=== PATIENT | female | born 1935 ===

== ENCOUNTER 2016-10-09 17:59 | Inpatient (IN) | payer OTHER ==
[2016-10-09 23:02] VITALS: BMI 22.9
[2016-10-09 23:09] LABS: BASOPHILS # (AUTO) 0.1 X10^3/uL (0.0-0.1); BASOPHILS % (AUTO) 0.4 % (0.2-1.0); EOSINOPHILS # (AUTO) 0.3 x10^3/uL (0.0-0.2); EOSINOPHILS % (AUTO) 2.5 % (0.9-2.9); LYMPHOCYTES # (AUTO) 1.4 X10^3/uL (1.3-2.9); MEAN CORPUSCULAR HEMOGLOBIN 27.1 pg (27.0-34.0); MEAN CORPUSCULAR HGB CONC 32.4 g/dL (33.0-35.0); MEAN CORPUSCULAR VOLUME 83.6 fL (80.0-100.0); MEAN PLATELET VOLUME 7.9 fL (7.4-11.0); MONOCYTES # (AUTO) 0.9 x10^3/uL (0.3-0.8); MONOCYTES % (AUTO) 7.3 % (0.0-13.0); NEUTROPHILS # (AUTO) 9.2 x10^3/uL (2.2-4.8); NEUTROPHILS % (AUTO) 77.8 % (42.0-75.0); PLATELET COUNT 174 X10^3/uL (150.0-450.0); RED BLOOD COUNT 4.43 X10^6/uL (3.5-5.4); RED CELL DISTRIBUTION WIDTH 15.5 % (11.6-16.5); WHITE BLOOD COUNT 11.9 X10^3/uL (3.6-10.0)
[2016-10-09 23:21] LABS: ALANINE AMINOTRANSFERASE 15 Units/L (12-78); ALBUMIN 2.7 g/dL (3.4-5.0); ALKALINE PHOSPHATASE 58 Units/L (46-116); ASPARTATE AMINO TRANSFERASE 19 Units/L (15-37); BLOOD UREA NITROGEN 9 mg/dL (7-18); CALCIUM 9.2 mg/dL (8.5-10.1); CHLORIDE 100 mmol/L (98-107); COR CA(FOR HYPOALB) 10.2 mg/dL (8.5-10.1); COR NA(FOR HYPERGLY) 137 mmol/L (136-145); CREATININE 0.72 mg/dL (0.55-1.02); GLUCOSE 111 mg/dL (65-99); SODIUM 137 mmol/L (136-145); TOTAL PROTEIN 6.9 g/dL (6.4-8.2); eGFR BLACK RACES > 60 (>60); eGFR NON BLACK RACES > 60 (>60)
[2016-10-10 00:18] LABS: BILIRUBIN,URINE NEGATIVE (NEGATIVE); BLOOD/HEMOGLOBIN,URINE 5+ (NEGATIVE); GLUCOSE, URINE NEGATIVE (NEGATIVE); KETONES,URINE NEGATIVE (NEGATIVE); LEUKOCYTE ESTERASE ,URINE 1+ (NEGATIVE); NITRITES,URINE NEGATIVE (NEGATIVE); PH,URINE 6.5 (5.0 - 8.0); PROTEIN,URINE 1+ (NEGATIVE); UROBILINOGEN,URINE NORMAL (NORMAL)
[2016-10-10 00:37] LABS: APPEARANCE,URINE CLEAR (CLEAR); COLOR,URINE YELLOW (YELLOW)
[2016-10-10 00:38] LABS: BACTERIA,URINE TRACE /HPF (NEGATIVE); SQUAMOUS EPITHELIAL CELL,UR RARE /HPF (NEGATIVE)
[2016-10-10] MEDS ORDERED: MORPHINE SULFATE INJ 2 MG IVP PRN (02:08)
[2016-10-10] MEDS: TORADOL 15 MG VIAL IVP SCH ×3 (09:42→22:07)
[2016-10-10] MEDS: NS 1000 ML 1,000 ML IV SCH (09:42)
[2016-10-10] MEDS ORDERED: K-RIDER 10 MEQ/NS 100 ML 10 MEQ/100 ML BAG IV PRN (11:22)
[2016-10-10] MEDS ORDERED: POTASSIUM CHLORIDE LIQ 20 MEQ UDC PO PRN (11:22)
[2016-10-10] MEDS ORDERED: K-LYTE EFFERVESCENT PO PRN (11:22)
[2016-10-10] MEDS ORDERED: K-DUR TAB 20 MEQ PO PRN (11:22)
[2016-10-10] MEDS ORDERED: TORADOL 30 MG VIAL ONE (13:41)
[2016-10-10] MEDS ORDERED: TORADOL 30 MG VIAL IVP ONE (13:42)
--- NOTE | 2016-10-10 15:47 | MRI ---
MRI SPINE LUMBAR WITHOUT AND WITH CONTRAST CLINICAL HISTORY: 81-year-old female with severe low back pain. COMPARISON: None. Technique: Multiplanar, multisequence MRI images of the lumbar spine were obtained prior to and fol lowing the uneventful intravenous administration of contrast. FINDINGS: The most caudad, fully-formed intervertebral disc will be labeled L5-S1 for the purpose of this dictation. There is significant dextroscoliotic curvature of the lumbar spine apex L1-L2. Alig nment is maintained. There is an acute burst fracture L1 with mild retropulsion of the fracture frag ments that does not contact the cord or nerve roots without significant canal compromise. Hypo inten se marrow diffusely within L3. Remaining vertebral body heights and marrow are preserved. There is l oss of disk space L2-L4 and L5-S1 and associated loss of disk signal at these levels with the remain ing intervertebral disc signal preserved. Cord signal is normal. The conus medullaris is normal in s ignal characteristics and morphology and terminates at the L1-2 level. T11-T12: No central canal or neural foraminal stenosis. T12-L1: Burst fracture with loss of approximately 25% vertebral body height centrally with low inten sity fracture line and hyperintense surrounding marrow at L1 with mild retropulsion of the fracture fragments with an central canal is widely patent. No significant neural foraminal stenosis. L1-L2: No significant central canal or neural foraminal stenosis. L2-L3: Significant dextroscoliotic curvature combines with severe facet hypertrophy and thickened fl avum to produce severe left subarticular recess stenosis without significant neural foraminal stenos is. No central canal stenosis. L3-L4: Significant bilateral facet hypertrophy and thickened flavum with canal measuring 11.9 mm wit hout significant neural foraminal stenosis L4-L5: Mild facet hypertrophy and thickened flavum without central canal or neural foraminal stenosi s. L5-S1: No significant central canal or neural foraminal stenosis with moderate facet hypertrophy and thickened flavum. There is no evidence of abnormal enhancement within the lumbar spine. Significant fatty atrophy of the right psoas and paraspinous musculature from T12 inferiorly. Large T2 hyperintense and T1 isointense cystic lesions arising from the kidneys bilaterally. Remaining par aspinous soft tissues are unremarkable. IMPRESSION: 1. Acute burst fracture at L1 with mild retropulsion of the fracture fragments without cord impingem ent or central canal/neural foraminal narrowing. 2. Diffuse hypo intense marrow signal on L3 without fracture. These lesions may represent metastatic disease, consideration for percutaneous biopsy should be given. 3. Multilevel degenerative change without significant central canal or neural foraminal stenosis oth erwise 4. Significant fatty atrophy of the right psoas and paraspinous musculature. 5. Cystic lesions within the bilateral kidneys, recommend renal ultrasound and/or CT renal protocol for complete evaluation if not previously performed.. Reported By:
--- NOTE | 2016-10-10 16:36 | DR.H&P ---
H&P - History & Physical for Day of: H&P Date: 10/09/16 - Chief Complaint Chief Complaint: BACK PAIN, RECENT FALL - Allergies Allergies/Adverse Reactions: Allergies Allergy/AdvReac Type Severity Reaction Status Date / Time zolpidem [From Ambien] AdvReac Verified 10/09/16 20:13 - History of Present Illness History of Present Illness: IS A 81 YEAR OLD PATIENT OF OURS WHO WAS TRANSFERRED TO US LAST NIGHT WITH COMPLAINTS OF SEVERE LOWER BACK PAIN. PATIENT STATED THAT SHE FELL ON 10/01/10 AND HAS HAD MIDDLE AND LOWER BACK PAIN SINCE AND HAS BEEN UNABLE TO WALK. PATIENT WAS TAKEN TO [facility]. T- SPINE XRAY REVEALED REMOTE COMPRESSION FRACTURES OF T8 AND T7 WITH VERTEBROPLASTY . LUMBAR XRAY REPORTED COMPRESSION FRACTURE WITH VERTEBROPLASTY AT L3, COMPRESSION OF THE SUPERIOR ENDPALTE OF L1. PATIENT AND FAMILY REQUESTED TRANSFER TO OUR FACILITY FOR ORTHO CONSULT WITH . PATIENT IS NOTED WITH TENDERNESS TO MIDDLE AND LOWER BACK ON EXAMINATION. PATIENT WAS TRANSFERRED AND ADMITTED FOR FURTHER TREATMENT AND EVALUATION. WE WILL CHECK CHECK CBC, CMP, AND URINALYSIS. WE WILL CONSULT AND FOLLOW UP WITH PATIENT IN AM. - Past Medical History Past Medical History: Anxiety, Arthritis, CHF, Depression, GERD, Hypertension, Hypothyroidism Additional Medical History: CONSTIPATION, URINARY INCONTINENCE, CERVICAL SPONDYLOSIS, BACK PAIN - Past Surgical History Surgical History: Appendectomy, Hysterectomy, Ortho Surgery, Tonsillectomy Additional Surgical History: TUBAL LIGATION, RIGHT HIP, BILATERAL KNEES - Family History Family Medical History: Cancer - Social History Does patient currently use any type of tobacco product: No Have you used tobacco products in the last 12 months: No Type of Tobacco Use: None Alcohol Use: None Drug Use: None - Medications Home Medications: Aspirin EC [ASPIRIN EC 81 MG *] 81 mg PO DAILY 10/09/16 [History Confirmed 10/09] Cyclosporine [Restasis] 1 drop OP BID 10/09/16 [History Confirmed 10/09/16] Duloxetine HCl [Duloxetine HCl] 60 mg PO DAILY 10/09/16 [History Confirmed 10/09] Fentanyl [Fentanyl] 100 mcg TOP Q72H 10/09/16 [History Confirmed 10/09/16] Furosemide [Furosemide] 40 mg PO DAILY 10/09/16 [History Confirmed 10/09/16] Gabapentin [NEURONTIN CAP 300 mg *] 300 mg PO BID 10/09/16 [History Confirmed ] Levothyroxine Sodium [Levothyroxine Sodium] 100 mcg PO DAILY 10/09/16 [History Confirmed 10/09/16] Lisinopril [Lisinopril] 2.5 mg PO DAILY 10/09/16 [History Confirmed 10/09/16] Omeprazole [Omeprazole] 40 mg PO DAILY 10/09/16 [History Confirmed 10/09/16] Oxybutynin Chloride [Oxybutynin Chloride ER] 10 mg PO DAILY 10/09/16 [History Confirmed 10/09/16] Polyethylene Glycol Pwd Ud [MIRALAX POWDER (17 GM DOSE) *] 1 ea PO DAILY [History Confirmed 10/09/16] Potassium Chloride [Potassium Chloride] 10 meq PO DAILY 10/09/16 [History Confirmed 10/09/16] Pregabalin [Lyrica] 100 mg PO DAILY 10/09/16 [History Confirmed 10/09/16] Primidone [Primidone] 100 mg PO HS 10/09/16 [History Confirmed 10/09/16] Sotalol HCl [Sotalol] 80 mg PO BID 10/09/16 [History Confirmed 10/09/16] Topiramate [Topiramate] 25 mg PO BID 10/09/16 [History Confirmed 10/09/16] Tramadol HCl [Tramadol HCl] 50 mg PO TID PRN 10/09/16 [History Confirmed ] - Review of Systems Constitutional: No Symptoms Reported. denies: See HPI, Fever, Chills, Sweats, Weakness, Malaise, Other Eyes: No Symptoms Reported. denies: See HPI, Pain, Vision Change, Conjunctivae Inflammation, Eyelid Inflammation, Redness, Other ENT: No Symptoms Reported. denies: See HPI, Ear Pain, Ear Discharge, Nose Pain , Nose Discharge, Nose Congestion, Mouth Pain, Mouth Swelling, Throat Pain, Throat Swelling, Other Respiratory: No Symptoms Reported. denies: See HPI, Cough, Dry, Shortness of Breath, Hemoptysis, SOB with Excertion, Pleuritic Pain, Sputum, Wheezing, Other Cardiovascular: No Symptoms Reported. denies: Chest Pain, See HPI, Palpitations , Orthopnea, Paroxysmal Noc. Dyspnea, Edema, Light Headedness, Other Gastrointestinal: No Symptoms Reported. denies: See HPI, Nausea, Vomiting, Abdominal Pain, Diarrhea, Constipation, Melena, Hematochezia, Other Genitourinary: No Symptoms Reported. denies: See HPI, Dysuria, Frequency, Incontinence, Hematuria, Retention, Other Musculoskeletal: No Symptoms Reported, Back Pain Skin: No Symptoms Reported. denies: See HPI, Rash, Lesions, Jaundice, Bruising , Wound, Ecchymosis, Other Neurological: No Symptoms Reported - Physical Exam Vital Signs: Temperature 98.4 F Pulse Rate [Left Brachial] 72 Pulse Rate [Right Radial] 92 Respiratory Rate 20 Blood Pressure [Left Arm] 121/83 Blood Pressure [Right Arm] 119/71 O2 Sat by Pulse Oximetry 92 Oriented: Normal Eyes: Normal Ear: Normal Nose: Normal Throat: Normal Respiratory: Clear Throughout. negative: Diminished Throughout, Rhonchi Throughout, Rales Throughout, Wheezes Throughout, RUL Clear, RML Clear, RLL Clear, MIGUELANGEL Clear, LML Clear, LLL Clear, RUL Diminished, RML Diminished, RLL Diminished, MIGUELANGEL Diminished, LML Diminished, LLL Diminished, RUL Absent, RML Absent, RLL Absent, MIGUELANGEL Absent, LML Absent, LLL Absent, RUL Rhonchi, RML Rhonchi , RLL Rhonchi, MIGUELANGEL Rhonchi, LML Rhonchi, LLL Rhonchi, RUL Insp. Wheeze, RML Insp. Wheeze, RLL Insp. Wheeze, MIGUELANGEL Insp.Wheeze, LML Insp.Wheeze, LLL Insp.Wheeze, RUL Exp. Wheeze, RML Exp. Wheeze, RLL Exp. Wheeze, MIGUELANGEL Exp. Wheeze , LML Exp. Wheeze, LLL Exp. Wheeze, RUL Rales, RML Rales, RLL Rales, MIGUELANGEL Rales, LML Rales, LLL Rales, RUL Rub, RML Rub, RLL Rub, MIGUELANGEL Rub, LML Rub, LLL Rub, RUL Squeak, RML Squeak, RLL Squeak, MIGUELANGEL Squeak, LML Squeak, LLL Squeak Cardiovascular: Normal. negative: Tachycardia, Bradycardia, Irregular, S3, S4, Systolic, Diastolic, Murmur, Edema, Other : Normal. negative: Dysuria, Hematuria, Frequency, Discharge, Testicular Pain , Bleeding, , Other Auscultation: Bowel Sounds: Normal. negative: Bruit, Absent, Increased, Decreased, High Pitched, Other Palpation: Normal Tenderness: Normal. negative: Diffuse, RUQ, RLQ, LUQ, LLQ, Epigastric, Periumbilical, Suprapubic, Mild, Moderate, Severe, Rebound, Guarding, Rigidity, Other Skin: Normal. negative: Decreased Turgur, Rash, Papular, Macular, Maculopapular , Vesicular, Pustular, Petechial, Red, Tender, Hot, Diaphoresis, Wound, Bruising , Ecchymosis, Other Musculoskeletal: Back:Thoracic, Back:Lumbar, Tender, Instability Psychiatric: Normal. negative: Anxiety, Depression, Agitation, Other Mood Description: Calm. negative: Angry, Apathetic, Depressed, Fearful, Flat, Happy, Hostile, Sad, Suspicious, Withdrawn, Anxious, Appropriate, Labile Affect: Normal Speech Pattern: Clear - Assessment/Plan (1) Severe back pain Status: Acute Plan: MORHINE IV PRN, ORTHO CONSULT, CONTINUE TO MONITOR (2) Compression fracture of body of thoracic vertebra Status: Acute Plan: MORHINE IV PRN, ORTHO CONSULT, CONTINUE TO MONITOR (3) Compression fracture of lumbar vertebra Qualifiers: Encounter type: initial encounter Fracture type: closed Fracture healing : F Qualified Code(s): S32.000A - Wedge compression fracture of unspecified lumbar vertebra, initial encounter for closed fracture Status: Acute Plan: MORHINE IV PRN, ORTHO CONSULT, CONTINUE TO MONITOR
[2016-10-10] MEDS: ROCEPHIN VIAL 1 GM 1 GM in NS 50 ML IV + SPIKE MINIBAG* 50 ML IV SCH (18:31)
--- NOTE | 2016-10-10 21:25 | PCM.PROG ---
Progress Note - Progress Note for Day of Date: 10/10/16 - Subjective Subjective: WAS ADMITTED YESTERDAY EVENING WITH COMPRESSION FRACTURES OF THORACIC AND LUMBAR SPINE. SHE IS ALERT IN BED ON MORNING ROUNDS. SHE IS WITH COMPLAINS OF BACK PAIN THAT IS NOT BEING RELIEVED BY MORPHINE AT THIS TIME. LUNGS ARE CLEAR ON AUSCULTATION. PATIENT STATES THAT SHE HAS BEEN UNABLE TO GET OUT OF BED. VITALS THIS AM ARE 99.2, 18, 72, 92%, 119/71. LABS WERE OBTAINED AND REPORTED WBC 11.9. CMP REPORTED POTASSIUM 3.3, BUN 9, CREATININE 0.72, CARBON DIOXIDE 34, CALCIUM 10.2, ALBUMIN 2.7. URINALYSIS REPORTED WBC 2-4, RBC 8-10, OCCULT BLOOD 5+, PROTEIN 1+, LEUKOCYTES 1+. WE ARE AWAITING CONSULT FROM . WE WILL START PATIENT ON TORALDOL 15MG IV Q6H, RECHECK LABS AND FOLLOW UP WITH PT IN AM. - Past Medical Family Social History Past Med/Fam/Surg Hx: No changes since H&P Allergies: Allergies zolpidem [From Ambien] Adverse Reaction (Verified 10/09/16 20:13) - Review of Systems ROS: No change since H&P - Vital Signs and I&O's Vital Signs: Temperature 98.4 F Pulse Rate [Left Brachial] 72 Pulse Rate [Right Radial] 94 Respiratory Rate 20 Blood Pressure [Left Arm] 121/83 Blood Pressure [Right Arm] 161/96 O2 Sat by Pulse Oximetry 93 Intake and Output: Intake & Output 10/08/16 10/09/16 10/10/16 10/11/16 11:59 11:59 11:59 11:59 Intake Total 700 176 Output Total 251 Balance 449 176 - Physical Exam Oriented: Normal Eyes: Normal Ear: Normal Nose: Normal Throat: Normal Respiratory: Normal Cardiovascular: Normal. negative: Tachycardia, Bradycardia, Irregular, S3, S4, Systolic, Diastolic, Murmur, Edema, Other : Normal. negative: Dysuria, Hematuria, Frequency, Discharge, Testicular Pain , Bleeding, , Other Auscultation: Bowel Sounds: Normal. negative: Bruit, Absent, Increased, Decreased, High Pitched, Other Palpation: Normal Tenderness: Normal. negative: Diffuse, RUQ, RLQ, LUQ, LLQ, Epigastric, Periumbilical, Suprapubic, Mild, Moderate, Severe, Rebound, Guarding, Rigidity, Other Skin: Normal. negative: Decreased Turgur, Rash, Papular, Macular, Maculopapular , Vesicular, Pustular, Petechial, Red, Tender, Hot, Diaphoresis, Wound, Bruising , Ecchymosis, Other Musculoskeletal: Back:Thoracic, Back:Lumbar, Tender, Instability Psychiatric: Normal. negative: Anxiety, Depression, Agitation, Other Mood Description: Calm. negative: Angry, Apathetic, Depressed, Fearful, Flat, Happy, Hostile, Sad, Suspicious, Withdrawn, Anxious, Appropriate, Labile Affect: Normal Speech Pattern: Clear - Laboratory and Diagnostics Result Diagrams: 10/09/16 22:40 10/09/16 22:40 Labs: Laboratory WBC 11.9 X10^3/uL (3.6-10.0) H 10/09/16 22:40 RBC 4.43 X10^6/uL (3.5-5.4) 10/09/16 22:40 Hgb 12.0 g/dL (12.0-16.0) 10/09/16 22:40 Hct 37.0 % (36.0-47.0) 10/09/16 22:40 MCV 83.6 fL (80.0-100.0) 10/09/16 22:40 MCH 27.1 pg (27.0-34.0) 10/09/16 22:40 MCHC 32.4 g/dL (33.0-35.0) L 10/09/16 22:40 RDW 15.5 % (11.6-16.5) 10/09/16 22:40 Plt Count 174 X10^3/uL (150.0-450.0) 10/09/16 22:40 MPV 7.9 fL (7.4-11.0) 10/09/16 22:40 Neut % 77.8 % (42.0-75.0) H 10/09/16 22:40 Lymph % 12.0 % (21.0-51.0) L 10/09/16 22:40 [place] % 7.3 % (0.0-13.0) 10/09/16 22:40 Eos % 2.5 % (0.9-2.9) 10/09/16 22:40 Baso % 0.4 % (0.2-1.0) 10/09/16 22:40 Neut # 9.2 x10^3/uL (2.2-4.8) H 10/09/16 22:40 Lymph # 1.4 X10^3/uL (1.3-2.9) 10/09/16 22:40 [place] # 0.9 x10^3/uL (0.3-0.8) H 10/09/16 22:40 Eos # 0.3 x10^3/uL (0.0-0.2) H 10/09/16 22:40 Baso # 0.1 X10^3/uL (0.0-0.1) 10/09/16 22:40 Absolute Nucleated RBC 0.0 /100WBC 10/09/16 22:40 INR Target Range - 10/09/16 22:40 INR 1.10 (0.8-1.3) 10/09/16 22:40 Sodium 137 mmol/L (136-145) 10/09/16 22:40 Corrected Sodium 137 mmol/L (136-145) 10/09/16 22:40 Potassium 3.3 mmol/L (3.5-5.1) L 10/09/16 22:40 Chloride 100 mmol/L (98-107) 10/09/16 22:40 Carbon Dioxide 34.0 mmol/L (21-32) H 10/09/16 22:40 BUN 9 mg/dL (7-18) 10/09/16 22:40 Creatinine 0.72 mg/dL (0.55-1.02) 10/09/16 22:40 Est GFR (MDRD) Af Amer > 60 (>60) 10/09/16 22:40 Est GFR (MDRD) Non-Af > 60 (>60) 10/09/16 22:40 Glucose 111 mg/dL (65-99) H 10/09/16 22:40 Calcium 9.2 mg/dL (8.5-10.1) 10/09/16 22:40 Corrected Calcium 10.2 mg/dL (8.5-10.1) H 10/09/16 22:40 Total Bilirubin 0.40 mg/dL (0.2-1.0) 10/09/16 22:40 AST 19 Units/L (15-37) 10/09/16 22:40 ALT 15 Units/L (12-78) 10/09/16 22:40 Alkaline Phosphatase 58 Units/L (46-116) 10/09/16 22:40 Total Protein 6.9 g/dL (6.4-8.2) 10/09/16 22:40 Albumin 2.7 g/dL (3.4-5.0) L 10/09/16 22:40 Globulin 4.2 g/dL (2.5-4.5) 10/09/16 22:40 Albumin/Globulin Ratio 0.6 Ratio (1.1-2.1) L 10/09/16 22:40 Specimen Type Catherized urine 10/09/16 23:56 Urine Color Yellow (YELLOW) 10/09/16 23:56 Urine Appearance Clear (CLEAR) 10/09/16 23:56 Urine pH 6.5 (5.0 - 8.0) 10/09/16 23:56 Ur Specific [place] 1.015 (1.000-1.030) 10/09/16 23:56 Urine Protein 1+ (NEGATIVE) 10/09/16 23:56 Urine Glucose (UA) Negative (NEGATIVE) 10/09/16 23:56 Urine Ketones Negative (NEGATIVE) 10/09/16 23:56 Urine Occult Blood 5+ (NEGATIVE) 10/09/16 23:56 Urine Nitrite Negative (NEGATIVE) 10/09/16 23:56 Urine Bilirubin Negative (NEGATIVE) 10/09/16 23:56 Urine Urobilinogen Normal (NORMAL) 10/09/16 23:56 Ur Leukocyte Esterase 1+ (NEGATIVE) 10/09/16 23:56 Urine RBC 8-10 /HPF (NEGATIVE) 10/09/16 23:56 Urine WBC 2-4 /HPF (NEGATIVE) 10/09/16 23:56 Ur Squamous Epith Cells Rare /HPF (NEGATIVE) 10/09/16 23:56 Urine Bacteria Trace /HPF (NEGATIVE) 10/09/16 23:56 Ur Culture Indicated? Yes/culture set up 10/09/16 23:56 - Plan (1) Severe back pain Status: Acute Plan: MORHINE IV PRN, ORTHO CONSULT, CONTINUE TO MONITOR (2) Compression fracture of body of thoracic vertebra Status: Acute Plan: MORHINE IV PRN, ORTHO CONSULT, CONTINUE TO MONITOR (3) Compression fracture of lumbar vertebra Status: Acute Qualifiers: Encounter type: initial encounter Fracture type: closed Fracture healing : F Qualified Code(s): S32.000A - Wedge compression fracture of unspecified lumbar vertebra, initial encounter for closed fracture Plan: MORHINE IV PRN, ORTHO CONSULT, CONTINUE TO MONITOR
[2016-10-11] MEDS: TORADOL 15 MG VIAL IVP SCH ×4 (04:31→21:53)
[2016-10-11 06:21] LABS: BASOPHILS # (AUTO) 0.1 X10^3/uL (0.0-0.1); BASOPHILS % (AUTO) 0.7 % (0.2-1.0); EOSINOPHILS # (AUTO) 0.5 x10^3/uL (0.0-0.2); EOSINOPHILS % (AUTO) 5.3 % (0.9-2.9); HEMATOCRIT 34.6 % (36.0-47.0); HEMOGLOBIN 11.5 g/dL (12.0-16.0); LYMPHOCYTES # (AUTO) 1.8 X10^3/uL (1.3-2.9); LYMPHOCYTES % (AUTO) 20.1 % (21.0-51.0); MEAN CORPUSCULAR HEMOGLOBIN 27.6 pg (27.0-34.0); MEAN CORPUSCULAR HGB CONC 33.1 g/dL (33.0-35.0); MEAN CORPUSCULAR VOLUME 83.3 fL (80.0-100.0); MONOCYTES # (AUTO) 0.9 x10^3/uL (0.3-0.8); MONOCYTES % (AUTO) 10.4 % (0.0-13.0); NEUTROPHILS # (AUTO) 5.7 x10^3/uL (2.2-4.8); NEUTROPHILS % (AUTO) 63.5 % (42.0-75.0); PLATELET COUNT 172 X10^3/uL (150.0-450.0); RED BLOOD COUNT 4.16 X10^6/uL (3.5-5.4); RED CELL DISTRIBUTION WIDTH 15.3 % (11.6-16.5)
[2016-10-11 06:28] LABS: ALANINE AMINOTRANSFERASE 17 Units/L (12-78); ALBUMIN 2.3 g/dL (3.4-5.0); ALKALINE PHOSPHATASE 52 Units/L (46-116); ASPARTATE AMINO TRANSFERASE 33 Units/L (15-37); BLOOD UREA NITROGEN 12 mg/dL (7-18); CALCIUM 9.3 mg/dL (8.5-10.1); CHLORIDE 104 mmol/L (98-107); COR CA(FOR HYPOALB) 10.7 mg/dL (8.5-10.1); CREATININE 0.47 mg/dL (0.55-1.02); GLUCOSE 93 mg/dL (65-99); SODIUM 141 mmol/L (136-145); TOTAL PROTEIN 6.5 g/dL (6.4-8.2); eGFR BLACK RACES > 60 (>60); eGFR NON BLACK RACES > 60 (>60)
--- NOTE | 2016-10-11 06:29 | RAD ---
HISTORY: Preop kyphoplasty Study: Chest one view Comparison: None Findings: The patient is rotated to the left. The heart is upper limits normal in size. The aorta is calcified . No congestive heart failure is noted. No definite acute alveolar infiltrates are present. No pleur al effusions are identified. The bony thorax is unremarkable with the exception of 2 prior thoracic vertebroplasties. IMPRESSION: Lungs clear Reported By:
--- NOTE | 2016-10-11 06:57 | US ---
HISTORY: Renal cysts Study: Bilateral renal sonogram Comparison: MRI lumbar spine October 10, 2016 Technique: Multiple grayscale sonographic images were obtained. Findings: The right kidney measured 10.5 x 3.7 x 5 centimeters. The left kidney measured 10.8 x 5.9 x 4.7 cent imeters. Cortical thickness and cortical echogenicity are normal bilaterally. No solid masses, hydro nephrosis, stones, or perinephric fluid collections are identified. Bilateral renal cysts are presen t 1.7 centimeters on the right and 7.8 centimeters on the left. IMPRESSION: Bilateral renal cysts Reported By:
[2016-10-11] MEDS: ROCEPHIN VIAL 1 GM 1 GM in NS 50 ML IV + SPIKE MINIBAG* 50 ML IV SCH (08:29)
[2016-10-11] MEDS: ALBUMIN HUMAN 25%- 100ML 100 ML IV SCH (08:29)
--- NOTE | 2016-10-11 09:47 | PCM.PROG ---
Progress Note - Progress Note for Day of Date: 10/11/16 - Subjective Subjective: WAS ADMITTED FOR COMPRESSION FRACTURES OF THORACIC AND LUMBAR SPINE. SHE IS ALERT IN BED ON MORNING ROUNDS. SHE CONTINUES WITH COMPLAINTS OF BACK PAIN AND RIGHT SHOULDER PAIN. KYPHOPLASTY IS PLANNED FOR THIS MORNING WITH . LUNGS ARE CLEAR ON AUSCULTATION. VITALS THIS AM ARE 97.7, 71, 20, 91%, 174/85. LABS WERE OBTAINED AND REPORTED WBC 9.0, HGB 11.5 , HCT 34.6. CMP REPORTED POTASSIUM 4.2, BUN 12, CREATININE 0.47, CARBON DIOXIDE 33, CALCIUM 10.7, ALBUMIN 2.3. WE WILL CONTINUE TORADOL 15MG IV Q6H FOR PAIN, WE WILL REVIEW AND RESTART HOME MEDICATIONS, RECHECK LABS AND FOLLOW UP WITH PT IN AM. - Past Medical Family Social History Past Med/Fam/Surg Hx: No changes since H&P Allergies: Allergies zolpidem [From Ambien] Adverse Reaction (Verified 10/09/16 20:13) - Review of Systems ROS: No change since H&P - Vital Signs and I&O's Vital Signs: Temperature 97.7 F Pulse Rate [Left Brachial] 71 Pulse Rate [Right Radial] 87 Respiratory Rate 20 Blood Pressure [Left Arm] 174/85 Blood Pressure [Right Arm] 136/84 O2 Sat by Pulse Oximetry 91 Intake and Output: Intake & Output 10/08/16 10/09/16 10/10/16 10/11/16 11:59 11:59 11:59 11:59 Intake Total 700 516 Output Total 251 550 Balance 449 -34 - Physical Exam Oriented: Normal Eyes: Normal Ear: Normal Nose: Normal Throat: Normal Respiratory: Normal Cardiovascular: Normal. negative: Tachycardia, Bradycardia, Irregular, S3, S4, Systolic, Diastolic, Murmur, Edema, Other : Normal. negative: Dysuria, Hematuria, Frequency, Discharge, Testicular Pain , Bleeding, , Other Auscultation: Bowel Sounds: Normal. negative: Bruit, Absent, Increased, Decreased, High Pitched, Other Palpation: Normal Tenderness: Normal. negative: Diffuse, RUQ, RLQ, LUQ, LLQ, Epigastric, Periumbilical, Suprapubic, Mild, Moderate, Severe, Rebound, Guarding, Rigidity, Other Skin: Normal. negative: Decreased Turgur, Rash, Papular, Macular, Maculopapular , Vesicular, Pustular, Petechial, Red, Tender, Hot, Diaphoresis, Wound, Bruising , Ecchymosis, Other Musculoskeletal: Right, Shoulder, Back:Thoracic, Back:Lumbar, Tender, Instability Psychiatric: Normal. negative: Anxiety, Depression, Agitation, Other Mood Description: Calm. negative: Angry, Apathetic, Depressed, Fearful, Flat, Happy, Hostile, Sad, Suspicious, Withdrawn, Anxious, Appropriate, Labile Affect: Normal Speech Pattern: Clear, Appropriate - Laboratory and Diagnostics Result Diagrams: 10/11/16 03:30 10/11/16 03:30 Labs: Laboratory WBC 9.0 X10^3/uL (3.6-10.0) 10/11/16 03:30 RBC 4.16 X10^6/uL (3.5-5.4) 10/11/16 03:30 Hgb 11.5 g/dL (12.0-16.0) L 10/11/16 03:30 Hct 34.6 % (36.0-47.0) L 10/11/16 03:30 MCV 83.3 fL (80.0-100.0) 10/11/16 03:30 MCH 27.6 pg (27.0-34.0) 10/11/16 03:30 MCHC 33.1 g/dL (33.0-35.0) 10/11/16 03:30 RDW 15.3 % (11.6-16.5) 10/11/16 03:30 Plt Count 172 X10^3/uL (150.0-450.0) 10/11/16 03:30 MPV 9.0 fL (7.4-11.0) 10/11/16 03:30 Neut % 63.5 % (42.0-75.0) 10/11/16 03:30 Lymph % 20.1 % (21.0-51.0) L 10/11/16 03:30 [place] % 10.4 % (0.0-13.0) 10/11/16 03:30 Eos % 5.3 % (0.9-2.9) H 10/11/16 03:30 Baso % 0.7 % (0.2-1.0) 10/11/16 03:30 Neut # 5.7 x10^3/uL (2.2-4.8) H 10/11/16 03:30 Lymph # 1.8 X10^3/uL (1.3-2.9) 10/11/16 03:30 [place] # 0.9 x10^3/uL (0.3-0.8) H 10/11/16 03:30 Eos # 0.5 x10^3/uL (0.0-0.2) H 10/11/16 03:30 Baso # 0.1 X10^3/uL (0.0-0.1) 10/11/16 03:30 Absolute Nucleated RBC 0.1 /100WBC 10/11/16 03:30 INR Target Range - 10/09/16 22:40 INR 1.10 (0.8-1.3) 10/09/16 22:40 Sodium 141 mmol/L (136-145) 10/11/16 03:30 Corrected Sodium TNP 10/11/16 03:30 Potassium 4.2 mmol/L (3.5-5.1) 10/11/16 03:30 Chloride 104 mmol/L (98-107) 10/11/16 03:30 Carbon Dioxide 33.0 mmol/L (21-32) H 10/11/16 03:30 BUN 12 mg/dL (7-18) 10/11/16 03:30 Creatinine 0.47 mg/dL (0.55-1.02) L 10/11/16 03:30 Est GFR (MDRD) Af Amer > 60 (>60) 10/11/16 03:30 Est GFR (MDRD) Non-Af > 60 (>60) 10/11/16 03:30 Glucose 93 mg/dL (65-99) 10/11/16 03:30 Calcium 9.3 mg/dL (8.5-10.1) 10/11/16 03:30 Corrected Calcium 10.7 mg/dL (8.5-10.1) H 10/11/16 03:30 Total Bilirubin 0.50 mg/dL (0.2-1.0) 10/11/16 03:30 AST 33 Units/L (15-37) 10/11/16 03:30 ALT 17 Units/L (12-78) 10/11/16 03:30 Alkaline Phosphatase 52 Units/L (46-116) 10/11/16 03:30 Total Protein 6.5 g/dL (6.4-8.2) 10/11/16 03:30 Albumin 2.3 g/dL (3.4-5.0) L 10/11/16 03:30 Globulin 4.2 g/dL (2.5-4.5) 10/11/16 03:30 Albumin/Globulin Ratio 0.5 Ratio (1.1-2.1) L 10/11/16 03:30 Specimen Type Catherized urine 10/09/16 23:56 Urine Color Yellow (YELLOW) 10/09/16 23:56 Urine Appearance Clear (CLEAR) 10/09/16 23:56 Urine pH 6.5 (5.0 - 8.0) 10/09/16 23:56 Ur Specific [place] 1.015 (1.000-1.030) 10/09/16 23:56 Urine Protein 1+ (NEGATIVE) 10/09/16 23:56 Urine Glucose (UA) Negative (NEGATIVE) 10/09/16 23:56 Urine Ketones Negative (NEGATIVE) 10/09/16 23:56 Urine Occult Blood 5+ (NEGATIVE) 10/09/16 23:56 Urine Nitrite Negative (NEGATIVE) 10/09/16 23:56 Urine Bilirubin Negative (NEGATIVE) 10/09/16 23:56 Urine Urobilinogen Normal (NORMAL) 10/09/16 23:56 Ur Leukocyte Esterase 1+ (NEGATIVE) 10/09/16 23:56 Urine RBC 8-10 /HPF (NEGATIVE) 10/09/16 23:56 Urine WBC 2-4 /HPF (NEGATIVE) 10/09/16 23:56 Ur Squamous Epith Cells Rare /HPF (NEGATIVE) 10/09/16 23:56 Urine Bacteria Trace /HPF (NEGATIVE) 10/09/16 23:56 Ur Culture Indicated? Yes/culture set up 10/09/16 23:56 - Plan (1) Severe back pain Status: Acute Plan: MORHINE IV PRN, KYPHOPLASTY PLANNED FOR LUMBAR FX, CONTINUE TO MONITOR (2) Compression fracture of body of thoracic vertebra Status: Acute Plan: MORHINE IV PRN, ORTHO CONSULT, CONTINUE TO MONITOR (3) Compression fracture of lumbar vertebra Status: Acute Qualifiers: Encounter type: initial encounter Fracture type: closed Fracture healing : F Qualified Code(s): S32.000A - Wedge compression fracture of unspecified lumbar vertebra, initial encounter for closed fracture Plan: MORHINE IV PRN, TORADOL SCHEDULED, KYPHOPLASTY PLANNED, CONTINUE TO MONITOR
[2016-10-11] MEDS ORDERED: PATIENT'S HOME MEDICATION (Potassium Chloride [Potassium Chloride] 10 MEQ) PO SCH (10:00)
[2016-10-11] MEDS ORDERED: OXYBUTYNIN CHLORIDE 10 MG PO SCH (10:00)
[2016-10-11] MEDS ORDERED: PATIENT'S HOME MEDICATION (Omeprazole [Omeprazole] 40 MG) PO SCH (10:00)
[2016-10-11] MEDS ORDERED: PREGABALIN 100 MG PO SCH (10:00)
[2016-10-11] MEDS ORDERED: XYLOCAINE 1% and EPINEPHRINE 1:100,000 ONE ×2 (10:06→10:07)
[2016-10-11] MEDS ORDERED: MARCAINE 0.25% WITH EPI IJ ONE (10:07)
[2016-10-11] MEDS: DURAGESIC 100 mcg/HR PATCH TD SCH (10:07)
[2016-10-11] MEDS ORDERED: VERSED ONE (10:38)
[2016-10-11] MEDS ORDERED: DIPRIVAN VIAL ONE (10:38)
[2016-10-11] MEDS ORDERED: D5 LR 1000 ML 1,000 ML IV ONE (10:52)
[2016-10-11] MEDS ORDERED: FENTANYL INJ 100 mcg ONE (11:49)
[2016-10-11] MEDS: MIRALAX POWDER (1 DOSE 17GM) PO SCH (13:54)
[2016-10-11] MEDS: DITROPAN TAB 5 MG PO SCH (13:55)
[2016-10-11] MEDS: ZESTRIL TAB 5 MG PO SCH (13:55)
[2016-10-11] MEDS: BETAPACE AF PO SCH ×2 (13:55→22:23)
[2016-10-11] MEDS: PriLOSEC PO SCH (13:55)
[2016-10-11] MEDS: LASIX PO SCH (13:55)
[2016-10-11] MEDS: CYMBALTA PO SCH (13:56)
[2016-10-11] MEDS: MICRO K EXTEN CAP 10 MEQ PO SCH (13:56)
[2016-10-11] MEDS: SYNTHROID 100 mcg TAB PO SCH (13:56)
[2016-10-11] MEDS: LYRICA CAP 100 MG PO SCH (13:56)
[2016-10-11] MEDS: NS 1000 ML 1,000 ML IV SCH (13:57)
[2016-10-11] MEDS: PATIENT'S HOME MEDICATION (Cyclosporine [Restasis] 1 DROP) OP SCH ×2 (16:10→21:54)
[2016-10-11] MEDS: TOPAMAX PO SCH (21:49)
[2016-10-11] MEDS: NEURONTIN CAP 300 MG PO SCH (21:49)
[2016-10-11] MEDS: MYSOLINE PO SCH (21:49)
[2016-10-12] MEDS: NS 1000 ML 1,000 ML IV SCH ×2 (04:22→11:11)
[2016-10-12] MEDS: TORADOL 15 MG VIAL IVP SCH ×4 (04:23→23:15)
[2016-10-12 05:37] LABS: ALANINE AMINOTRANSFERASE 24 Units/L (12-78); ALBUMIN 2.6 g/dL (3.4-5.0); ALKALINE PHOSPHATASE 44 Units/L (46-116); ASPARTATE AMINO TRANSFERASE 31 Units/L (15-37); BLOOD UREA NITROGEN 11 mg/dL (7-18); CARBON DIOXIDE 29.5 mmol/L (21-32); CHLORIDE 106 mmol/L (98-107); COR CA(FOR HYPOALB) 10.1 mg/dL (8.5-10.1); COR NA(FOR HYPERGLY) 143 mmol/L (136-145); CREATININE 0.53 mg/dL (0.55-1.02); GLUCOSE 111 mg/dL (65-99); SODIUM 143 mmol/L (136-145); TOTAL PROTEIN 6.1 g/dL (6.4-8.2); eGFR BLACK RACES > 60 (>60); eGFR NON BLACK RACES > 60 (>60)
[2016-10-12 07:42] LABS: BASOPHILS # (AUTO) 0.1 X10^3/uL (0.0-0.1); BASOPHILS % (AUTO) 0.9 % (0.2-1.0); EOSINOPHILS # (AUTO) 0.5 x10^3/uL (0.0-0.2); EOSINOPHILS % (AUTO) 6.5 % (0.9-2.9); HEMATOCRIT 32.1 % (36.0-47.0); HEMOGLOBIN 10.5 g/dL (12.0-16.0); LYMPHOCYTES # (AUTO) 1.7 X10^3/uL (1.3-2.9); MEAN CORPUSCULAR HEMOGLOBIN 27.2 pg (27.0-34.0); MEAN CORPUSCULAR HGB CONC 32.7 g/dL (33.0-35.0); MEAN CORPUSCULAR VOLUME 83.3 fL (80.0-100.0); MONOCYTES # (AUTO) 0.9 x10^3/uL (0.3-0.8); MONOCYTES % (AUTO) 10.7 % (0.0-13.0); NEUTROPHILS # (AUTO) 4.9 x10^3/uL (2.2-4.8); NEUTROPHILS % (AUTO) 60.9 % (42.0-75.0); PLATELET COUNT 184 X10^3/uL (150.0-450.0); RED BLOOD COUNT 3.85 X10^6/uL (3.5-5.4); RED CELL DISTRIBUTION WIDTH 15.1 % (11.6-16.5)
[2016-10-12] MEDS: ALBUMIN HUMAN 25%- 100ML 100 ML IV SCH (09:18)
[2016-10-12] MEDS: ROCEPHIN VIAL 1 GM 1 GM in NS 50 ML IV + SPIKE MINIBAG* 50 ML IV SCH (09:18)
[2016-10-12] MEDS: ZESTRIL TAB 5 MG PO SCH (09:20)
[2016-10-12] MEDS: NEURONTIN CAP 300 MG PO SCH ×2 (09:20→23:21)
[2016-10-12] MEDS: ULTRAM PO PRN (09:20)
[2016-10-12] MEDS: PriLOSEC PO SCH (09:28)
[2016-10-12] MEDS: LASIX PO SCH (09:28)
[2016-10-12] MEDS: DITROPAN TAB 5 MG PO SCH (09:28)
[2016-10-12] MEDS: SYNTHROID 100 mcg TAB PO SCH (09:28)
[2016-10-12] MEDS: BETAPACE AF PO SCH ×2 (09:28→23:14)
[2016-10-12] MEDS: LYRICA CAP 100 MG PO SCH (09:29)
[2016-10-12] MEDS: MICRO K EXTEN CAP 10 MEQ PO SCH (09:29)
[2016-10-12] MEDS: TOPAMAX PO SCH ×2 (09:29→23:21)
[2016-10-12] MEDS: MIRALAX POWDER (1 DOSE 17GM) PO SCH (09:30)
[2016-10-12] MEDS: CYMBALTA PO SCH (09:30)
[2016-10-12] MEDS: PATIENT'S HOME MEDICATION (Cyclosporine [Restasis] 1 DROP) OP SCH ×2 (09:42→23:20)
[2016-10-12] MEDS: MYSOLINE PO SCH (23:14)
[2016-10-13] MEDS: TORADOL 15 MG VIAL IVP SCH (03:39)
[2016-10-13 06:18] LABS: BASOPHILS # (AUTO) 0.1 X10^3/uL (0.0-0.1); BASOPHILS % (AUTO) 0.9 % (0.2-1.0); EOSINOPHILS # (AUTO) 0.5 x10^3/uL (0.0-0.2); EOSINOPHILS % (AUTO) 8.9 % (0.9-2.9); HEMATOCRIT 30.1 % (36.0-47.0); LYMPHOCYTES # (AUTO) 1.7 X10^3/uL (1.3-2.9); LYMPHOCYTES % (AUTO) 27.4 % (21.0-51.0); MEAN CORPUSCULAR HEMOGLOBIN 27.9 pg (27.0-34.0); MEAN CORPUSCULAR HGB CONC 33.2 g/dL (33.0-35.0); MEAN CORPUSCULAR VOLUME 83.9 fL (80.0-100.0); MEAN PLATELET VOLUME 8.6 fL (7.4-11.0); MONOCYTES # (AUTO) 0.7 x10^3/uL (0.3-0.8); MONOCYTES % (AUTO) 11.4 % (0.0-13.0); NEUTROPHILS # (AUTO) 3.1 x10^3/uL (2.2-4.8); NEUTROPHILS % (AUTO) 51.4 % (42.0-75.0); PLATELET COUNT 172 X10^3/uL (150.0-450.0); RED BLOOD COUNT 3.59 X10^6/uL (3.5-5.4); RED CELL DISTRIBUTION WIDTH 15.1 % (11.6-16.5); WHITE BLOOD COUNT 6.1 X10^3/uL (3.6-10.0)
[2016-10-13 06:32] LABS: ALANINE AMINOTRANSFERASE 21 Units/L (12-78); ALBUMIN 2.8 g/dL (3.4-5.0); ALKALINE PHOSPHATASE 40 Units/L (46-116); ASPARTATE AMINO TRANSFERASE 18 Units/L (15-37); BLOOD UREA NITROGEN 12 mg/dL (7-18); CALCIUM 9.1 mg/dL (8.5-10.1); CARBON DIOXIDE 31.2 mmol/L (21-32); CHLORIDE 108 mmol/L (98-107); COR CA(FOR HYPOALB) 10.1 mg/dL (8.5-10.1); CREATININE 0.54 mg/dL (0.55-1.02); GLUCOSE 82 mg/dL (65-99); SODIUM 145 mmol/L (136-145); TOTAL PROTEIN 6.3 g/dL (6.4-8.2); eGFR BLACK RACES > 60 (>60); eGFR NON BLACK RACES > 60 (>60)
[2016-10-13] MEDS: ROCEPHIN VIAL 1 GM 1 GM in NS 50 ML IV + SPIKE MINIBAG* 50 ML IV SCH (08:54)
[2016-10-13] MEDS: ALBUMIN HUMAN 25%- 100ML 100 ML IV SCH (08:54)
[2016-10-13] MEDS: NS 1000 ML 1,000 ML IV SCH ×2 (08:55→08:59)
[2016-10-13] MEDS: LASIX PO SCH (08:56)
[2016-10-13] MEDS: MIRALAX POWDER (1 DOSE 17GM) PO SCH (08:56)
[2016-10-13] MEDS: DITROPAN TAB 5 MG PO SCH (08:56)
[2016-10-13] MEDS: MICRO K EXTEN CAP 10 MEQ PO SCH (08:56)
[2016-10-13] MEDS: PriLOSEC PO SCH (08:57)
[2016-10-13] MEDS: BETAPACE AF PO SCH ×2 (08:57→21:50)
[2016-10-13] MEDS: TOPAMAX PO SCH ×2 (08:57→21:50)
[2016-10-13] MEDS: NEURONTIN CAP 300 MG PO SCH ×2 (08:57→21:50)
[2016-10-13] MEDS: SYNTHROID 100 mcg TAB PO SCH (08:58)
[2016-10-13] MEDS: CYMBALTA PO SCH (08:58)
[2016-10-13] MEDS: LYRICA CAP 100 MG PO SCH (08:58)
[2016-10-13] MEDS: PATIENT'S HOME MEDICATION (Cyclosporine [Restasis] 1 DROP) OP SCH ×2 (08:58→21:51)
[2016-10-13] MEDS: ZESTRIL TAB 5 MG PO SCH (08:59)
[2016-10-13] MEDS: ULTRAM PO PRN (13:17)
[2016-10-13] MEDS ORDERED: OXYCODONE HCL 20 MG PO PRN (16:49)
[2016-10-13] MEDS ORDERED: ROXICODONE TAB 15 MG PO PRN (21:00)
[2016-10-13] MEDS ORDERED: ROXICODONE TAB 5 MG PO PRN (21:00)
[2016-10-13] MEDS: COMPAZINE PO SCH (21:50)
[2016-10-13] MEDS: MYSOLINE PO SCH (21:50)
[2016-10-14 05:06] LABS: BASOPHILS # (AUTO) 0.1 X10^3/uL (0.0-0.1); EOSINOPHILS # (AUTO) 0.5 x10^3/uL (0.0-0.2); EOSINOPHILS % (AUTO) 6.7 % (0.9-2.9); HEMATOCRIT 28.7 % (36.0-47.0); HEMOGLOBIN 9.4 g/dL (12.0-16.0); LYMPHOCYTES # (AUTO) 1.7 X10^3/uL (1.3-2.9); LYMPHOCYTES % (AUTO) 22.4 % (21.0-51.0); MEAN CORPUSCULAR HEMOGLOBIN 27.5 pg (27.0-34.0); MEAN CORPUSCULAR HGB CONC 32.8 g/dL (33.0-35.0); MEAN CORPUSCULAR VOLUME 83.8 fL (80.0-100.0); MEAN PLATELET VOLUME 8.5 fL (7.4-11.0); MONOCYTES # (AUTO) 0.9 x10^3/uL (0.3-0.8); MONOCYTES % (AUTO) 12.2 % (0.0-13.0); NEUTROPHILS # (AUTO) 4.3 x10^3/uL (2.2-4.8); NEUTROPHILS % (AUTO) 57.7 % (42.0-75.0); PLATELET COUNT 175 X10^3/uL (150.0-450.0); RED BLOOD COUNT 3.43 X10^6/uL (3.5-5.4); RED CELL DISTRIBUTION WIDTH 14.9 % (11.6-16.5); WHITE BLOOD COUNT 7.5 X10^3/uL (3.6-10.0)
[2016-10-14 05:23] LABS: ALANINE AMINOTRANSFERASE 28 Units/L (12-78); ALKALINE PHOSPHATASE 51 Units/L (46-116); ASPARTATE AMINO TRANSFERASE 29 Units/L (15-37); BLOOD UREA NITROGEN 12 mg/dL (7-18); CALCIUM 9.1 mg/dL (8.5-10.1); CARBON DIOXIDE 33.2 mmol/L (21-32); CHLORIDE 104 mmol/L (98-107); COR CA(FOR HYPOALB) 9.9 mg/dL (8.5-10.1); CREATININE 0.53 mg/dL (0.55-1.02); GLUCOSE 106 mg/dL (65-99); SODIUM 142 mmol/L (136-145); TOTAL PROTEIN 6.2 g/dL (6.4-8.2); eGFR BLACK RACES > 60 (>60); eGFR NON BLACK RACES > 60 (>60)
[2016-10-14] MEDS ORDERED: COLACE CAP 100 MG PO PRN (06:09)
[2016-10-14] MEDS ORDERED: MILK OF MAGNESIA PO PRN (06:09)
[2016-10-14] MEDS: COMPAZINE PO SCH (06:19)
--- NOTE | 2016-10-14 07:16 | RAD ---
HISTORY: Hypoxia Study: Chest one view Comparison: October 10, 2016 Findings: The patient is rotated to the left. The heart is upper limits normal in size. The aorta is calcified . No congestive heart failure is identified. No acute alveolar infiltrates are noted. There is blunt ing of the right costophrenic angle suggestive of a small right pleural effusion. No left pleural ef fusion is identified. The bony thorax is unremarkable with the exception of 2 prior vertebroplasties . IMPRESSION: No definite infiltrates Suspect small right pleural effusion Reported By:
[2016-10-14] MEDS: ROCEPHIN VIAL 1 GM 1 GM in NS 50 ML IV + SPIKE MINIBAG* 50 ML IV SCH (08:16)
[2016-10-14] MEDS: ALBUMIN HUMAN 25%- 100ML 100 ML IV SCH (08:16)
[2016-10-14] MEDS: MIRALAX POWDER (1 DOSE 17GM) PO SCH (08:17)
[2016-10-14] MEDS: DITROPAN TAB 5 MG PO SCH (08:17)
[2016-10-14] MEDS: LASIX PO SCH (08:17)
[2016-10-14] MEDS: BETAPACE AF PO SCH (08:32)
[2016-10-14] MEDS: PATIENT'S HOME MEDICATION (Cyclosporine [Restasis] 1 DROP) OP SCH (08:32)
[2016-10-14] MEDS: CYMBALTA PO SCH (08:32)
[2016-10-14] MEDS: ZESTRIL TAB 5 MG PO SCH (08:32)
[2016-10-14] MEDS: NEURONTIN CAP 300 MG PO SCH (08:33)
[2016-10-14] MEDS: LYRICA CAP 100 MG PO SCH (08:33)
[2016-10-14] MEDS: MICRO K EXTEN CAP 10 MEQ PO SCH (08:33)
[2016-10-14] MEDS: TOPAMAX PO SCH (08:33)
[2016-10-14] MEDS: SYNTHROID 100 mcg TAB PO SCH (08:33)
[2016-10-14] MEDS: PriLOSEC PO SCH (08:33)
[2016-10-14] MEDS ORDERED: ASPIRIN EC 81 MG PO SCH (09:00)
[2016-10-14] MEDS: DURAGESIC 100 mcg/HR PATCH TD SCH (10:01)
[2016-10-14] MEDS: NS 1000 ML 1,000 ML IV SCH (10:18)
[2016-10-14 11:36] VITALS: BP 157/72
--- NOTE | 2016-10-16 11:10 | DR.CARTERD ---
- Discharge Summary for: Discharge Summary for Date of:: 10/14/16 - Admission Date Date of Admission: 10/09/16 - Admission Diagnoses Admission Diagnosis: (1) Severe back pain (2) Compression fracture of body of thoracic vertebra (3) Compression fracture of lumbar vertebra - Discharge Date Discharge Date: 10/14/16 - Discharge Diagnoses Discharge Diagnosis: (1) Severe back pain (2) Compression fracture of body of thoracic vertebra (3) Compression fracture of lumbar vertebra - Hospital Course Hospital Course: IS A 81 YEAR OLD PATIENT OF OURS WHO WAS TRANSFERRED TO US WITH COMPLAINTS OF SEVERE LOWER BACK PAIN. PATIENT STATED THAT SHE FELL ON 10/01/10 AND HAD MIDDLE AND LOWER BACK PAIN SINCE AND HAS BEEN UNABLE TO WALK. PATIENT WAS TAKEN TO [facility] ER. T-SPINE XRAY REVEALED REMOTE COMPRESSION FRACTURES OF T8 AND T7 WITH VERTEBROPLASTY . LUMBAR XRAY REPORTED COMPRESSION FRACTURE WITH VERTEBROPLASTY AT L3, COMPRESSION OF THE SUPERIOR ENDPALTE OF L1. PATIENT AND FAMILY REQUESTED TRANSFER TO OUR FACILITY FOR ORTHO CONSULT WITH . PATIENT WAS NOTED WITH TENDERNESS TO MIDDLE AND LOWER BACK ON EXAMINATION. PATIENT WAS TRANSFERRED AND ADMITTED FOR FURTHER TREATMENT AND EVALUATION. WE PLANNED TO CHECK CBC, CMP, URINALYSIS, AND TO CONSULT WITH . CONSULTED WITH PATIENT THE MORNING AFTER ADMISSION AND CHECKED AN MRI OF THE LUMBAR SPINE. IT REPORTED AN ACUTE BURST FRACTURE AT L1 WITH MILD RETROPULSION OF THE FRACTURE FRAGMENTS WITHOUT CORD IMPINGEMENT OR CENTRAL CANAL/NEURAL FORAMINAL NARROWING. PATIENT HAD KYPHOPLASTY DONE BY ON 10/11. WE CONTINUED TO MONITOR AND TREAT PATIENT OVER THE NEXT SEVERAL DAYS. SHE RECEIVED PHYSICAL THERAPY WHILE DISCHARGE TO [facility] FOR SHORT TERM REHAB WAS PLANNED. SHE WAS ALSO TREATED FOR A URINARY TRACT INFECTION WITH ROCEPHIN 1GM. TODAY, SHE WAS AWAKE AND ORIENTED ON MORNING ROUNDS. SHE REPORTED LESS PAIN IN HER BACK THAN SHE HAD BEEN HAVING. VITALS TODAY WERE 98.4, 71, 20, 92%, 157/72. CBC REPORTED WBC 7.5, HGB 9.4, HCT 28.7. CMP REPORTED SODIUM 142, CARBON DIOXIDE 33.2, CREATININE 0.53 , GLUCOSE 106, ALBUMIN 3.0. PATIENT HAS BEEN ACCEPTED AND HAS A ROOM WAITING AT [facility] IN [place]. WE PLANNED FOR DISCHARGE. INSTRUCTIONS FOR MEDICATIONS AND FOLLOW UP WERE DISCUSSED WITH PATIENT AND FAMILY. BOTH VERBALIZED UNDERSTANDING. PATIENT WAS TRANSFERRED VIA EMS IN STABLE CONDITION TO [facility]. - Discharge Medications Discharge Medications: Aspirin EC [ASPIRIN EC 81 MG *] 81 mg PO DAILY 10/09/16 [History] Cyclosporine [Restasis] 1 drop OP BID 10/09/16 [History] Duloxetine HCl 60 mg PO DAILY 10/09/16 [History] Fentanyl [Fentanyl] 100 mcg TOP Q72H 10/09/16 [History] Furosemide 40 mg PO DAILY 10/09/16 [History] Gabapentin [NEURONTIN CAP 300 mg *] 300 mg PO BID 10/09/16 [History] Levothyroxine Sodium 100 mcg PO DAILY 10/09/16 [History] Lisinopril 2.5 mg PO DAILY 10/09/16 [History] Omeprazole 40 mg PO DAILY 10/09/16 [History] Oxybutynin Chloride [Oxybutynin Chloride ER] 10 mg PO DAILY 10/09/16 [History] Polyethylene Glycol Pwd Ud [MIRALAX POWDER (17 GM DOSE) *] 1 ea PO DAILY [History] Potassium Chloride 10 meq PO DAILY 10/09/16 [History] Pregabalin [Lyrica] 100 mg PO DAILY 10/09/16 [History] Primidone 100 mg PO HS 10/09/16 [History] Sotalol HCl [Sotalol] 80 mg PO BID 10/09/16 [History] Topiramate 25 mg PO BID 10/09/16 [History] Tramadol HCl 50 mg PO TID PRN 10/09/16 [History] Prochlorperazine Maleate [Compazine] 10 mg PO TID 10/12/16 [History] Docusate Sodium [COLACE CAP 100 MG *] 100 mg PO Q12H #60 cap 10/14/16 [Rx] Fentanyl 100 Mcg/Hr [DURAGESIC PATCH 100 mcg/hr *] 1 ea TD Q72H #10 patch [Rx] Oxycodone HCl 20 mg PO QID PRN #240 10/14/16 [Rx] Tramadol HCl [ULTRAM 50 MG *] 50 mg PO TID PRN #90 tab 10/14/16 [Rx]
== END 2016-10-14 14:45 | DRG 517 ==
LOC: MED/SURG 17:59 → OBSVTOIN 17:59
PROVIDERS: ADMIT Internal Medicine; ATTEND Internal Medicine
PROC: 0QU03JZ Supplement Lumbar Vertebra with Synthetic Substitute, Percutaneous Approach (ICD-10-PCS; 2016-10-11)
PROC: 0QS03ZZ Reposition Lumbar Vertebra, Percutaneous Approach (ICD-10-PCS; principal; 2016-10-11 12:00)
DX: M48.56XA Collapsed vertebra, not elsewhere classified, lumbar region, initial encounter for fracture (principal); M54.5 Low back pain; M48.54XA Collapsed vertebra, not elsewhere classified, thoracic region, initial encounter for fracture; R26.89 Other abnormalities of gait and mobility; E03.8 Other specified hypothyroidism; I10 Essential (primary) hypertension; K21.9 Gastro-esophageal reflux disease without esophagitis; M13.89 Other specified arthritis, multiple sites
CPT/HCPCS: 36415; 71010; 72158; 76770; 80053; 81001; 84132; 85025; 85610; 87086; 93005; 93010; 94760; A4222; P9047; S0020; J0696; J1885; J2001; J2250; J2270; J3010; J3490; J7120